=== PATIENT | female | born 1955 | race African-American/Black ===

== ENCOUNTER 2017-01-15 16:19 | Emergency (ER) | payer OTHER ==
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
== END 2017-01-15 18:58 | disposition home or self-care (01) ==
LOC: CED 16:19
DX: S33.5XXA Sprain of ligaments of lumbar spine, initial encounter (principal); S23.3XXA Sprain of ligaments of thoracic spine, initial encounter; F17.210 Nicotine dependence, cigarettes, uncomplicated; Z85.038 Personal history of other malignant neoplasm of large intestine; Z86.73 Personal history of transient ischemic attack (TIA), and cerebral infarction without residual deficits; V43.52XA Car driver injured in collision with other type car in traffic accident, initial encounter
CPT/HCPCS: 72072; 72100; 99284